=== PATIENT | male | born 1940 | race Caucasian/White ===

== ENCOUNTER 2020-04-25 14:27 | Emergency (ER) | payer OTHER, MEDICARE ==
[~2020-04-25] VITALS: Ht 175.3 cm; Wt 110.0 kg
[2020-04-25] MEDS ORDERED: HYDR-3490 PO (14:54)
[2020-04-25] MEDS ORDERED: METF-877 PO (14:54)
[2020-04-25] MEDS ORDERED: ECOT81TA5 PO (14:54)
[2020-04-25] MEDS ORDERED: LANTINJ4 SC (14:59)
[2020-04-25] MEDS ORDERED: NOVOINJ3 SC (14:59)
[2020-04-25] MEDS ORDERED: LISI2.5T2 PO (14:59)
[2020-04-25] MEDS ORDERED: JARD1TAB3 PO (16:07)
[2020-04-25] MEDS ORDERED: D31000TA2 PO (16:07)
[2020-04-25] MEDS ORDERED: EUCECRE8 TOP (16:07)
[2020-04-25] MEDS ORDERED: VENL150C43 PO (16:07)
[2020-04-25] MEDS ORDERED: ASPI81CH33 PO (16:07)
[2020-04-25] MEDS ORDERED: CHLO125TA PO (16:07)
[2020-04-25] MEDS ORDERED: ROSU40TA4 PO (16:07)
[2020-04-25] MEDS ORDERED: LISI20TA33 PO (16:07)
[2020-04-25] MEDS ORDERED: METF500T13 PO (16:07)
[2020-04-25 16:14] LABS: VENOUS BASE EXCESS -0.9 (-2.0-2.0); VENOUS HCO3 26.4 MEQ/L (23.0-27.0); VENOUS PARTIAL PRESSURE CO2 53.3 mmHg (38.0-50.0); VENOUS PARTIAL PRESSURE O2 38.6 mmHg (30.0-50.0); VENOUS PH 7.313 UNITS (7.330-7.430); VENOUS STANDARD HCO3 23.1 MEQ/L; VENOUS TOTAL CO2 28.1 MEQ/L (24.0-28.0)
[2020-04-25 16:18] LABS: BASO % 0.5 % (0.0-1.0); EOS # 0.1 10^3/uL (0.0-0.5); EOS % 1.4 % (0.0-3.0); HEMATOCRIT 47.3 % (42.0-52.0); HEMOGLOBIN 15.5 g/dl (13.5-17.5); LYMPH # 1.7 10^3/uL (1.5-5.0); LYMPH % 27.9 % (24.0-44.0); MEAN CORPUSCULAR HEMOGLOBIN 27.5 pg (27.0-33.0); MEAN CORPUSCULAR HGB CONC 32.8 g/dl (32.0-36.5); MEAN CORPUSCULAR VOLUME 83.9 fl (80.0-96.0); MONO # 0.4 10^3/uL (0.0-0.8); MONO % 7.1 % (2.0-8.0); NEUTROPHILS # 3.7 10^3/uL (1.5-8.5); NEUTROPHILS % 62.3 % (36.0-66.0); PLATELET COUNT, AUTOMATED 214 10^3/uL (150-450); RED BLOOD COUNT 5.64 10^6/uL (4.30-6.10); WHITE BLOOD COUNT 5.9 10^3/uL (4.0-10.0)
[2020-04-25 16:44] LABS: CALCIUM LEVEL 8.9 MG/DL (8.8-10.2); CREATININE FOR GFR 1.32 MG/DL (0.70-1.30); HEMOGLOBIN A1c 13.3 %; POTASSIUM SERUM 3.9 MEQ/L (3.5-5.1)
[2020-04-25 17:01] VITALS: BP 128/82
== END 2020-04-25 17:06 | disposition home or self-care (01) ==
LOC: M ED 14:27
DX: E11.40 Type 2 diabetes mellitus with diabetic neuropathy, unspecified (principal); I10 Essential (primary) hypertension; Z79.899 Other long term (current) drug therapy; Z79.82 Long term (current) use of aspirin; Z79.4 Long term (current) use of insulin

== ENCOUNTER 2021-04-07 16:37 | Emergency (ER) | payer BC, MEDICARE, OTHER ==
[~2021-04-07 16:37] MED LIST: ASPI81CH33 PO; CHLO125TA PO; D31000TA2 PO; ECOT81TA5 PO; EUCECRE8 TOP; HYDR-3490 PO; JARD1TAB3 PO; LANTINJ4 SC; LISI2.5T9 PO; LISI20TA33 PO; METF-877 PO; METF500T13 PO; NOVOINJ3 SC; ROSU40TA4 PO; VENL150C43 PO
[2021-04-07] MEDS ORDERED: ONDANSETRON 4 MG ORAL DISINTEGRATING TAB PO ONE (17:10)
[2021-04-07] MEDS ORDERED: POTASSIUM CHLORIDE 10MEQ SR TABLET PO ONE (17:15)
[2021-04-07 17:32] LABS: BASO % 0.5 % (0.0-1.0); EOS # 0.1 10^3/uL (0.0-0.5); EOS % 0.6 % (0.0-3.0); HEMATOCRIT 50.8 % (42.0-52.0); HEMOGLOBIN 17.1 g/dl (13.5-17.5); LYMPH # 1.8 10^3/uL (1.5-5.0); LYMPH % 22.7 % (24.0-44.0); MEAN CORPUSCULAR HEMOGLOBIN 27.9 pg (27.0-33.0); MEAN CORPUSCULAR HGB CONC 33.7 g/dl (32.0-36.5); MEAN CORPUSCULAR VOLUME 82.7 fl (80.0-96.0); MONO # 0.6 10^3/uL (0.0-0.8); MONO % 7.5 % (2.0-8.0); NEUTROPHILS # 5.2 10^3/uL (1.5-8.5); NEUTROPHILS % 67.8 % (36.0-66.0); PLATELET COUNT, AUTOMATED 217 10^3/uL (150-450); RED BLOOD COUNT 6.14 10^6/uL (4.30-6.10); WHITE BLOOD COUNT 7.7 10^3/uL (4.0-10.0)
[2021-04-07 18:05] LABS: ALBUMIN 2.6 GM/DL (3.2-5.2); BILIRUBIN,DIRECT 0.1 MG/DL (0.0-0.2); BILIRUBIN,TOTAL 0.3 MG/DL (0.2-1.0); TOTAL PROTEIN 7.1 GM/DL (6.4-8.2)
[2021-04-07 18:08] LABS: BLOOD UREA NITROGEN 33 MG/DL (7-18); CARBON DIOXIDE LEVEL 29 MEQ/L (21-32); CHLORIDE LEVEL 90 MEQ/L (98-107); CREATININE FOR GFR 1.21 MG/DL (0.70-1.30); GLOMERULAR FILTRATION RATE > 60.0 (>42); GLUCOSE, FASTING 253 MG/DL (70-100); POTASSIUM SERUM 3.3 MEQ/L (3.5-5.1); SODIUM LEVEL 130 MEQ/L (136-145)
[2021-04-07 19:00] VITALS: O2SAT 98
[2021-04-07 19:02] VITALS: BP 167/86
[2021-04-07 19:31] LABS: RSV AMPLIFICATION NEGATIVE (NEGATIVE)
== END 2021-04-07 19:18 | disposition home or self-care (01) ==
LOC: M ED 16:37 → EDBD 16:37 → M ED 19:18
DX: E11.65 Type 2 diabetes mellitus with hyperglycemia (principal); Z91.19 Patient's noncompliance with other medical treatment and regimen; E87.6 Hypokalemia; I10 Essential (primary) hypertension; G62.9 Polyneuropathy, unspecified; F33.9 Major depressive disorder, recurrent, unspecified; G47.30 Sleep apnea, unspecified; Z79.899 Other long term (current) drug therapy; Z79.82 Long term (current) use of aspirin; Z79.84 Long term (current) use of oral hypoglycemic drugs; Z79.4 Long term (current) use of insulin; Z87.891 Personal history of nicotine dependence
CPT/HCPCS: 36415; 80048; 80076; 83690; 85025; 87631; 93005; 99284; Q0162

== ENCOUNTER 2021-04-19 11:58 | Inpatient (IN) | payer OTHER, MEDICARE ==
[~2021-04-19] VITALS: Ht 172.7 cm; Wt 109.0 kg
[2021-04-19 13:59] LABS: BASO % 0.5 % (0.0-1.0); EOS # 0.1 10^3/uL (0.0-0.5); EOS % 1.1 % (0.0-3.0); HEMATOCRIT 50.8 % (42.0-52.0); HEMOGLOBIN 16.4 g/dl (13.5-17.5); LYMPH # 1.8 10^3/uL (1.5-5.0); LYMPH % 24.5 % (24.0-44.0); MEAN CORPUSCULAR HEMOGLOBIN 27.6 pg (27.0-33.0); MEAN CORPUSCULAR HGB CONC 32.3 g/dl (32.0-36.5); MEAN CORPUSCULAR VOLUME 85.5 fl (80.0-96.0); MONO # 0.5 10^3/uL (0.0-0.8); MONO % 6.7 % (2.0-8.0); NEUTROPHILS # 4.9 10^3/uL (1.5-8.5); NEUTROPHILS % 66.5 % (36.0-66.0); PLATELET COUNT, AUTOMATED 237 10^3/uL (150-450); RED BLOOD COUNT 5.94 10^6/uL (4.30-6.10); WHITE BLOOD COUNT 7.3 10^3/uL (4.0-10.0)
[2021-04-19 15:19] LABS: RSV AMPLIFICATION NEGATIVE (NEGATIVE)
[2021-04-19] MEDS ORDERED: NORCO, ANEXSIA 5/325MG TABLET (HYDROcodone/ACETAMINOPHEN) PO ONE (15:35)
[2021-04-19 15:46] LABS: HEMOGLOBIN A1c 11.6 %
[2021-04-19 16:01] LABS: BLOOD UREA NITROGEN 12 MG/DL (7-18); CALCIUM LEVEL 8.4 MG/DL (8.8-10.2); CARBON DIOXIDE LEVEL 27 MEQ/L (21-32); CHLORIDE LEVEL 104 MEQ/L (98-107); CREATININE FOR GFR 0.79 MG/DL (0.70-1.30); GLOMERULAR FILTRATION RATE > 60.0 (>42); GLUCOSE, FASTING 149 MG/DL (70-100); SODIUM LEVEL 137 MEQ/L (136-145)
[2021-04-19] MEDS ORDERED: GLUCOSE 4GM CHEW TABLET PO PRN (16:10)
[2021-04-19] MEDS ORDERED: DEXTROSE 50% 50 ML SYRINGE IV PRN (16:10)
[2021-04-19] MEDS ORDERED: GLUCAGON INJ 1MG VIAL SC PRN (16:10)
[2021-04-19] MEDS ORDERED: ROSU20TA5 PO (17:10)
[2021-04-19] MEDS ORDERED: HYDR-3363 PO (17:10)
[2021-04-19] MEDS ORDERED: SEMA1PEN2 SQ (17:10)
[2021-04-19] MEDS ORDERED: LISI10TA22 PO (17:10)
[2021-04-19] MEDS ORDERED: HOME MED LIST COMPLETE! XX SCH (18:00)
[2021-04-19] MEDS: HumaLOG INSULIN (NovoLOG) PER UNIT SC SCH ×2 (18:10→20:31)
[2021-04-19 19:00] VITALS: BP 173/91
[2021-04-19 22:00] VITALS: BP 141/71
[2021-04-19] MEDS: HEPARIN SOD (PORCINE) 5000UNITS/ML 1ML VIAL/SYRINGE SC SCH (22:27)
[2021-04-20 06:00] VITALS: BP 138/68
[2021-04-20 07:26] LABS: HEMATOCRIT 48.6 % (42.0-52.0); HEMOGLOBIN 15.7 g/dl (13.5-17.5); MEAN CORPUSCULAR HEMOGLOBIN 27.9 pg (27.0-33.0); MEAN CORPUSCULAR HGB CONC 32.3 g/dl (32.0-36.5); MEAN CORPUSCULAR VOLUME 86.3 fl (80.0-96.0); PLATELET COUNT, AUTOMATED 177 10^3/uL (150-450); RED BLOOD COUNT 5.63 10^6/uL (4.30-6.10); WHITE BLOOD COUNT 7.3 10^3/uL (4.0-10.0)
[2021-04-20] MEDS: HumaLOG INSULIN (NovoLOG) PER UNIT SC SCH ×4 (07:30→21:28)
[2021-04-20 07:41] LABS: BLOOD UREA NITROGEN 12 MG/DL (7-18); CALCIUM LEVEL 8.6 MG/DL (8.8-10.2); CARBON DIOXIDE LEVEL 27 MEQ/L (21-32); CHLORIDE LEVEL 106 MEQ/L (98-107); CREATININE FOR GFR 0.81 MG/DL (0.70-1.30); GLOMERULAR FILTRATION RATE > 60.0 (>42); GLUCOSE, FASTING 77 MG/DL (70-100); POTASSIUM SERUM 3.4 MEQ/L (3.5-5.1); SODIUM LEVEL 139 MEQ/L (136-145)
[2021-04-20] MEDS ORDERED: hydrOXYzine 25 MG TAB PO PRN (07:50)
[2021-04-20] MEDS ORDERED: POTASSIUM CHLORIDE 10MEQ SR TABLET PO ONE (08:15)
[2021-04-20] MEDS: HEPARIN SOD (PORCINE) 5000UNITS/ML 1ML VIAL/SYRINGE SC SCH ×2 (08:38→21:29)
[2021-04-20] MEDS: LEVEMIR (INSULIN DETEMIR) 1 UNITS/0.01ML SC SCH ×2 (09:00→21:28)
[2021-04-20 14:00] VITALS: BP 125/71
[2021-04-20] MEDS: methocarbamoL 750 MG TAB PO PRN (15:04)
[2021-04-20] MEDS: ASPIRIN 81 MG CHEW TABLET PO SCH (21:26)
[2021-04-20] MEDS: VENLAFAXINE **XR** 75MG CAPSULE PO SCH (21:27)
[2021-04-20] MEDS: ROSUVASTATIN 10 MG TAB (CRESTOR) PO SCH (21:27)
[2021-04-20] MEDS: VITAMIN D 1,000 INTERNATIONAL UNITS TABLET PO SCH (21:27)
[2021-04-20 22:00] VITALS: BP 126/63
[2021-04-21 06:00] VITALS: BP 133/60
[2021-04-21] MEDS: methocarbamoL 750 MG TAB PO PRN ×2 (06:12→21:03)
[2021-04-21] MEDS: HumaLOG INSULIN (NovoLOG) PER UNIT SC SCH ×4 (08:06→21:00)
[2021-04-21] MEDS: HEPARIN SOD (PORCINE) 5000UNITS/ML 1ML VIAL/SYRINGE SC SCH ×3 (08:29→21:02)
[2021-04-21] MEDS: LEVEMIR (INSULIN DETEMIR) 1 UNITS/0.01ML SC SCH ×2 (08:30→21:02)
[2021-04-21] MEDS: PERCOCET 5MG/325MG TAB PO PRN (12:03)
[2021-04-21 12:19] LABS: BLOOD UREA NITROGEN 20 MG/DL (7-18); CALCIUM LEVEL 8.9 MG/DL (8.8-10.2); CARBON DIOXIDE LEVEL 28 MEQ/L (21-32); CHLORIDE LEVEL 106 MEQ/L (98-107); GLOMERULAR FILTRATION RATE > 60.0 (>42); GLUCOSE, FASTING 171 MG/DL (70-100); POTASSIUM SERUM 3.9 MEQ/L (3.5-5.1); SODIUM LEVEL 140 MEQ/L (136-145)
[2021-04-21 14:00] VITALS: BP 132/62
[2021-04-21] MEDS: VENLAFAXINE **XR** 75MG CAPSULE PO SCH (21:03)
[2021-04-21] MEDS: ROSUVASTATIN 10 MG TAB (CRESTOR) PO SCH (21:03)
[2021-04-21] MEDS: VITAMIN D 1,000 INTERNATIONAL UNITS TABLET PO SCH (21:03)
[2021-04-21] MEDS: ASPIRIN 81 MG CHEW TABLET PO SCH (21:03)
[2021-04-22] MEDS: HEPARIN SOD (PORCINE) 5000UNITS/ML 1ML VIAL/SYRINGE SC SCH ×3 (05:54→21:19)
[2021-04-22] MEDS: HumaLOG INSULIN (NovoLOG) PER UNIT SC SCH ×4 (08:23→21:19)
[2021-04-22] MEDS: LEVEMIR (INSULIN DETEMIR) 1 UNITS/0.01ML SC SCH ×2 (08:23→21:19)
[2021-04-22 09:10] VITALS: BP 148/70
[2021-04-22] MEDS: PERCOCET 5MG/325MG TAB PO PRN (10:25)
[2021-04-22] MEDS: VITAMIN D 1,000 INTERNATIONAL UNITS TABLET PO SCH (21:18)
[2021-04-22] MEDS: ASPIRIN 81 MG CHEW TABLET PO SCH (21:18)
[2021-04-22] MEDS: ROSUVASTATIN 10 MG TAB (CRESTOR) PO SCH (21:18)
[2021-04-22] MEDS: VENLAFAXINE **XR** 75MG CAPSULE PO SCH (21:18)
[2021-04-23] MEDS: HEPARIN SOD (PORCINE) 5000UNITS/ML 1ML VIAL/SYRINGE SC SCH ×3 (05:59→21:56)
[2021-04-23] MEDS: PERCOCET 5MG/325MG TAB PO PRN (06:00)
[2021-04-23 06:42] VITALS: BP 150/71
[2021-04-23] MEDS: HumaLOG INSULIN (NovoLOG) PER UNIT SC SCH ×4 (08:56→21:00)
[2021-04-23] MEDS: LEVEMIR (INSULIN DETEMIR) 1 UNITS/0.01ML SC SCH ×2 (08:56→21:57)
[2021-04-23 09:00] VITALS: BP 151/71
[2021-04-23] MEDS: VITAMIN D 1,000 INTERNATIONAL UNITS TABLET PO SCH (21:56)
[2021-04-23] MEDS: ROSUVASTATIN 10 MG TAB (CRESTOR) PO SCH (21:56)
[2021-04-23] MEDS: VENLAFAXINE **XR** 75MG CAPSULE PO SCH (21:56)
[2021-04-23] MEDS: ASPIRIN 81 MG CHEW TABLET PO SCH (21:56)
[2021-04-24 06:00] VITALS: BP 149/73
[2021-04-24] MEDS: HEPARIN SOD (PORCINE) 5000UNITS/ML 1ML VIAL/SYRINGE SC SCH ×3 (06:04→21:30)
[2021-04-24] MEDS: LEVEMIR (INSULIN DETEMIR) 1 UNITS/0.01ML SC SCH ×2 (08:32→21:30)
[2021-04-24] MEDS: HumaLOG INSULIN (NovoLOG) PER UNIT SC SCH ×4 (08:33→21:00)
[2021-04-24] MEDS: PERCOCET 5MG/325MG TAB PO PRN ×2 (10:11→21:31)
[2021-04-24 21:15] VITALS: BP 145/71
[2021-04-24] MEDS: VITAMIN D 1,000 INTERNATIONAL UNITS TABLET PO SCH (21:31)
[2021-04-24] MEDS: ROSUVASTATIN 10 MG TAB (CRESTOR) PO SCH (21:31)
[2021-04-24] MEDS: ASPIRIN 81 MG CHEW TABLET PO SCH (21:31)
[2021-04-24] MEDS: VENLAFAXINE **XR** 75MG CAPSULE PO SCH (21:31)
[2021-04-25] MEDS: HEPARIN SOD (PORCINE) 5000UNITS/ML 1ML VIAL/SYRINGE SC SCH ×3 (05:59→21:02)
[2021-04-25 06:05] VITALS: BP 158/74
[2021-04-25] MEDS: HumaLOG INSULIN (NovoLOG) PER UNIT SC SCH ×4 (08:05→21:00)
[2021-04-25] MEDS: LEVEMIR (INSULIN DETEMIR) 1 UNITS/0.01ML SC SCH ×2 (08:06→21:01)
[2021-04-25] MEDS: methocarbamoL 750 MG TAB PO PRN (13:04)
[2021-04-25] MEDS ORDERED: MIRALAX *UNIT DOSE* 17GM PACKET PO PRN (17:00)
[2021-04-25] MEDS: DOCUSATE SODIUM 100MG CAPSULE PO SCH (20:55)
[2021-04-25] MEDS: ROSUVASTATIN 10 MG TAB (CRESTOR) PO SCH (20:55)
[2021-04-25] MEDS: ASPIRIN 81 MG CHEW TABLET PO SCH (20:56)
[2021-04-25] MEDS: VITAMIN D 1,000 INTERNATIONAL UNITS TABLET PO SCH (20:56)
[2021-04-25] MEDS: VENLAFAXINE **XR** 75MG CAPSULE PO SCH (20:56)
[2021-04-26 06:00] VITALS: BP 160/79
[2021-04-26] MEDS: HEPARIN SOD (PORCINE) 5000UNITS/ML 1ML VIAL/SYRINGE SC SCH ×3 (06:30→20:57)
[2021-04-26] MEDS: DOCUSATE SODIUM 100MG CAPSULE PO SCH ×2 (08:03→21:00)
[2021-04-26] MEDS: HumaLOG INSULIN (NovoLOG) PER UNIT SC SCH ×4 (08:04→20:58)
[2021-04-26] MEDS: LEVEMIR (INSULIN DETEMIR) 1 UNITS/0.01ML SC SCH ×2 (08:04→20:58)
[2021-04-26] MEDS: ASPIRIN 81 MG CHEW TABLET PO SCH (20:56)
[2021-04-26] MEDS: ROSUVASTATIN 10 MG TAB (CRESTOR) PO SCH (20:57)
[2021-04-26] MEDS: VITAMIN D 1,000 INTERNATIONAL UNITS TABLET PO SCH (20:57)
[2021-04-26] MEDS: VENLAFAXINE **XR** 75MG CAPSULE PO SCH (20:57)
[2021-04-26] MEDS: PERCOCET 5MG/325MG TAB PO PRN (20:59)
[2021-04-26 22:00] VITALS: BP 136/63
[2021-04-27 04:30] VITALS: BP 178/90
[2021-04-27] MEDS: HEPARIN SOD (PORCINE) 5000UNITS/ML 1ML VIAL/SYRINGE SC SCH ×3 (05:03→20:31)
[2021-04-27] MEDS: LEVEMIR (INSULIN DETEMIR) 1 UNITS/0.01ML SC SCH ×2 (08:10→20:31)
[2021-04-27] MEDS: DOCUSATE SODIUM 100MG CAPSULE PO SCH ×2 (08:10→20:32)
[2021-04-27] MEDS: HumaLOG INSULIN (NovoLOG) PER UNIT SC SCH ×4 (08:10→20:32)
[2021-04-27 11:13] VITALS: BP 165/73
[2021-04-27] MEDS: PERCOCET 5MG/325MG TAB PO PRN (11:13)
[2021-04-27] MEDS: VENLAFAXINE **XR** 75MG CAPSULE PO SCH (20:32)
[2021-04-27] MEDS: VITAMIN D 1,000 INTERNATIONAL UNITS TABLET PO SCH (20:32)
[2021-04-27] MEDS: ROSUVASTATIN 10 MG TAB (CRESTOR) PO SCH (20:32)
[2021-04-27] MEDS: ASPIRIN 81 MG CHEW TABLET PO SCH (20:32)
[2021-04-28 06:00] VITALS: BP 167/73
[2021-04-28] MEDS: HEPARIN SOD (PORCINE) 5000UNITS/ML 1ML VIAL/SYRINGE SC SCH ×3 (06:40→20:23)
[2021-04-28] MEDS: HumaLOG INSULIN (NovoLOG) PER UNIT SC SCH ×4 (07:39→20:24)
[2021-04-28] MEDS: LEVEMIR (INSULIN DETEMIR) 1 UNITS/0.01ML SC SCH ×2 (08:51→20:24)
[2021-04-28] MEDS: DOCUSATE SODIUM 100MG CAPSULE PO SCH ×2 (08:51→20:25)
[2021-04-28] MEDS: PERCOCET 5MG/325MG TAB PO PRN (09:55)
[2021-04-28] MEDS: ASPIRIN 81 MG CHEW TABLET PO SCH (20:22)
[2021-04-28] MEDS: ROSUVASTATIN 10 MG TAB (CRESTOR) PO SCH (20:22)
[2021-04-28] MEDS: VITAMIN D 1,000 INTERNATIONAL UNITS TABLET PO SCH (20:23)
[2021-04-28] MEDS: VENLAFAXINE **XR** 75MG CAPSULE PO SCH (20:23)
[2021-04-29] MEDS: HEPARIN SOD (PORCINE) 5000UNITS/ML 1ML VIAL/SYRINGE SC SCH ×3 (05:17→20:17)
[2021-04-29 06:00] VITALS: BP 160/74
[2021-04-29] MEDS: PERCOCET 5MG/325MG TAB PO PRN ×2 (07:23→20:23)
[2021-04-29] MEDS: HumaLOG INSULIN (NovoLOG) PER UNIT SC SCH ×4 (07:23→20:14)
[2021-04-29] MEDS: DOCUSATE SODIUM 100MG CAPSULE PO SCH ×2 (09:00→20:17)
[2021-04-29] MEDS: LEVEMIR (INSULIN DETEMIR) 1 UNITS/0.01ML SC SCH ×2 (10:15→20:15)
[2021-04-29] MEDS: VENLAFAXINE **XR** 75MG CAPSULE PO SCH (20:13)
[2021-04-29] MEDS: ASPIRIN 81 MG CHEW TABLET PO SCH (20:13)
[2021-04-29] MEDS: VITAMIN D 1,000 INTERNATIONAL UNITS TABLET PO SCH (20:14)
[2021-04-29] MEDS: ROSUVASTATIN 10 MG TAB (CRESTOR) PO SCH (20:14)
[2021-04-29 22:00] VITALS: BP 157/73
[2021-04-30] MEDS: HEPARIN SOD (PORCINE) 5000UNITS/ML 1ML VIAL/SYRINGE SC SCH ×3 (05:26→21:04)
[2021-04-30 06:00] VITALS: BP 171/87
[2021-04-30] MEDS: LEVEMIR (INSULIN DETEMIR) 1 UNITS/0.01ML SC SCH ×2 (08:45→21:04)
[2021-04-30] MEDS: PERCOCET 5MG/325MG TAB PO PRN ×2 (08:45→21:06)
[2021-04-30] MEDS: DOCUSATE SODIUM 100MG CAPSULE PO SCH ×2 (08:46→21:05)
[2021-04-30] MEDS: HumaLOG INSULIN (NovoLOG) PER UNIT SC SCH ×4 (08:46→21:05)
[2021-04-30] MEDS: VITAMIN D 1,000 INTERNATIONAL UNITS TABLET PO SCH (21:05)
[2021-04-30] MEDS: ASPIRIN 81 MG CHEW TABLET PO SCH (21:05)
[2021-04-30] MEDS: ROSUVASTATIN 10 MG TAB (CRESTOR) PO SCH (21:05)
[2021-04-30] MEDS: VENLAFAXINE **XR** 75MG CAPSULE PO SCH (21:05)
[2021-05-01 05:57] VITALS: BP 157/75
[2021-05-01] MEDS: HEPARIN SOD (PORCINE) 5000UNITS/ML 1ML VIAL/SYRINGE SC SCH ×3 (06:22→20:34)
[2021-05-01] MEDS: DOCUSATE SODIUM 100MG CAPSULE PO SCH ×2 (07:51→20:36)
[2021-05-01] MEDS: PERCOCET 5MG/325MG TAB PO PRN ×2 (07:52→20:36)
[2021-05-01] MEDS: HumaLOG INSULIN (NovoLOG) PER UNIT SC SCH ×4 (07:54→20:35)
[2021-05-01] MEDS: LEVEMIR (INSULIN DETEMIR) 1 UNITS/0.01ML SC SCH ×2 (07:54→20:35)
[2021-05-01] MEDS: methocarbamoL 750 MG TAB PO PRN (09:18)
[2021-05-01] MEDS: VENLAFAXINE **XR** 75MG CAPSULE PO SCH (20:36)
[2021-05-01] MEDS: VITAMIN D 1,000 INTERNATIONAL UNITS TABLET PO SCH (20:36)
[2021-05-01] MEDS: ASPIRIN 81 MG CHEW TABLET PO SCH (20:36)
[2021-05-01] MEDS: ROSUVASTATIN 10 MG TAB (CRESTOR) PO SCH (20:36)
[2021-05-02] MEDS: HEPARIN SOD (PORCINE) 5000UNITS/ML 1ML VIAL/SYRINGE SC SCH ×3 (05:19→21:18)
[2021-05-02 06:04] VITALS: BP 157/72
[2021-05-02] MEDS: LEVEMIR (INSULIN DETEMIR) 1 UNITS/0.01ML SC SCH ×2 (08:33→21:18)
[2021-05-02] MEDS: HumaLOG INSULIN (NovoLOG) PER UNIT SC SCH ×4 (08:34→21:17)
[2021-05-02] MEDS: DOCUSATE SODIUM 100MG CAPSULE PO SCH ×4 (08:34→21:17)
[2021-05-02] MEDS: PERCOCET 5MG/325MG TAB PO PRN ×2 (08:35→21:16)
[2021-05-02] MEDS: ASPIRIN 81 MG CHEW TABLET PO SCH (21:16)
[2021-05-02] MEDS: ROSUVASTATIN 10 MG TAB (CRESTOR) PO SCH (21:16)
[2021-05-02] MEDS: VITAMIN D 1,000 INTERNATIONAL UNITS TABLET PO SCH (21:16)
[2021-05-02] MEDS: VENLAFAXINE **XR** 75MG CAPSULE PO SCH (21:17)
[2021-05-03 06:00] VITALS: BP 154/75
[2021-05-03] MEDS: HEPARIN SOD (PORCINE) 5000UNITS/ML 1ML VIAL/SYRINGE SC SCH ×3 (06:23→20:05)
[2021-05-03] MEDS: LEVEMIR (INSULIN DETEMIR) 1 UNITS/0.01ML SC SCH ×2 (08:25→19:56)
[2021-05-03] MEDS: HumaLOG INSULIN (NovoLOG) PER UNIT SC SCH ×4 (08:25→19:56)
[2021-05-03] MEDS: DOCUSATE SODIUM 100MG CAPSULE PO SCH ×2 (08:25→19:58)
[2021-05-03] MEDS: ASPIRIN 81 MG CHEW TABLET PO SCH (19:57)
[2021-05-03] MEDS: VENLAFAXINE **XR** 75MG CAPSULE PO SCH (19:57)
[2021-05-03] MEDS: PERCOCET 5MG/325MG TAB PO PRN (19:57)
[2021-05-03] MEDS: VITAMIN D 1,000 INTERNATIONAL UNITS TABLET PO SCH (19:57)
[2021-05-03] MEDS: ROSUVASTATIN 10 MG TAB (CRESTOR) PO SCH (19:57)
[2021-05-04 06:00] VITALS: BP 150/80
[2021-05-04] MEDS: HEPARIN SOD (PORCINE) 5000UNITS/ML 1ML VIAL/SYRINGE SC SCH ×3 (06:07→21:22)
[2021-05-04] MEDS: DOCUSATE SODIUM 100MG CAPSULE PO SCH ×2 (08:23→21:00)
[2021-05-04] MEDS: HumaLOG INSULIN (NovoLOG) PER UNIT SC SCH ×4 (08:24→21:21)
[2021-05-04] MEDS: LEVEMIR (INSULIN DETEMIR) 1 UNITS/0.01ML SC SCH ×2 (08:25→21:22)
[2021-05-04] MEDS: PERCOCET 5MG/325MG TAB PO PRN ×2 (08:26→21:20)
[2021-05-04] MEDS: VENLAFAXINE **XR** 75MG CAPSULE PO SCH (21:20)
[2021-05-04] MEDS: ROSUVASTATIN 10 MG TAB (CRESTOR) PO SCH (21:20)
[2021-05-04] MEDS: ASPIRIN 81 MG CHEW TABLET PO SCH (21:20)
[2021-05-04] MEDS: VITAMIN D 1,000 INTERNATIONAL UNITS TABLET PO SCH (21:20)
[2021-05-05 04:53] VITALS: BP 170/63
[2021-05-05] MEDS: HEPARIN SOD (PORCINE) 5000UNITS/ML 1ML VIAL/SYRINGE SC SCH ×3 (05:09→21:48)
[2021-05-05] MEDS: LEVEMIR (INSULIN DETEMIR) 1 UNITS/0.01ML SC SCH ×2 (08:26→21:48)
[2021-05-05] MEDS: HumaLOG INSULIN (NovoLOG) PER UNIT SC SCH ×4 (08:27→21:49)
[2021-05-05] MEDS: DOCUSATE SODIUM 100MG CAPSULE PO SCH ×2 (08:31→21:00)
[2021-05-05 14:00] VITALS: BP 142/71
[2021-05-05] MEDS: VENLAFAXINE **XR** 75MG CAPSULE PO SCH (21:49)
[2021-05-05] MEDS: ROSUVASTATIN 10 MG TAB (CRESTOR) PO SCH (21:49)
[2021-05-05] MEDS: ASPIRIN 81 MG CHEW TABLET PO SCH (21:49)
[2021-05-05] MEDS: VITAMIN D 1,000 INTERNATIONAL UNITS TABLET PO SCH (21:49)
[2021-05-06] MEDS: HEPARIN SOD (PORCINE) 5000UNITS/ML 1ML VIAL/SYRINGE SC SCH ×3 (05:29→20:58)
[2021-05-06 06:00] VITALS: BP 152/88
[2021-05-06] MEDS: HumaLOG INSULIN (NovoLOG) PER UNIT SC SCH ×4 (08:08→20:58)
[2021-05-06] MEDS: DOCUSATE SODIUM 100MG CAPSULE PO SCH ×2 (08:09→20:58)
[2021-05-06] MEDS: LEVEMIR (INSULIN DETEMIR) 1 UNITS/0.01ML SC SCH ×2 (08:09→20:58)
[2021-05-06] MEDS: PERCOCET 5MG/325MG TAB PO PRN (09:13)
[2021-05-06] MEDS: VENLAFAXINE **XR** 75MG CAPSULE PO SCH (20:58)
[2021-05-06] MEDS: VITAMIN D 1,000 INTERNATIONAL UNITS TABLET PO SCH (20:58)
[2021-05-06] MEDS: ASPIRIN 81 MG CHEW TABLET PO SCH (20:58)
[2021-05-06] MEDS: ROSUVASTATIN 10 MG TAB (CRESTOR) PO SCH (20:59)
[2021-05-07 06:00] VITALS: BP 198/95
[2021-05-07] MEDS: HEPARIN SOD (PORCINE) 5000UNITS/ML 1ML VIAL/SYRINGE SC SCH ×3 (06:19→21:35)
[2021-05-07] MEDS: DOCUSATE SODIUM 100MG CAPSULE PO SCH ×2 (08:08→21:34)
[2021-05-07] MEDS: LEVEMIR (INSULIN DETEMIR) 1 UNITS/0.01ML SC SCH ×2 (08:08→21:35)
[2021-05-07] MEDS: HumaLOG INSULIN (NovoLOG) PER UNIT SC SCH ×4 (08:08→21:44)
[2021-05-07] MEDS: PERCOCET 5MG/325MG TAB PO PRN (08:15)
[2021-05-07] MEDS: ASPIRIN 81 MG CHEW TABLET PO SCH (21:34)
[2021-05-07] MEDS: VITAMIN D 1,000 INTERNATIONAL UNITS TABLET PO SCH (21:34)
[2021-05-07] MEDS: ROSUVASTATIN 10 MG TAB (CRESTOR) PO SCH (21:34)
[2021-05-07] MEDS: VENLAFAXINE **XR** 75MG CAPSULE PO SCH (21:35)
[2021-05-08] MEDS: HEPARIN SOD (PORCINE) 5000UNITS/ML 1ML VIAL/SYRINGE SC SCH ×3 (05:33→22:05)
[2021-05-08 06:00] VITALS: BP 155/80
[2021-05-08] MEDS: LEVEMIR (INSULIN DETEMIR) 1 UNITS/0.01ML SC SCH ×2 (08:24→22:03)
[2021-05-08] MEDS: DOCUSATE SODIUM 100MG CAPSULE PO SCH ×3 (08:25→21:00)
[2021-05-08] MEDS: HumaLOG INSULIN (NovoLOG) PER UNIT SC SCH ×4 (08:25→22:03)
[2021-05-08 08:57] LABS: BASO # 0.1 10^3/uL (0.0-0.2); BASO % 1.3 % (0.0-1.0); EOS # 0.1 10^3/uL (0.0-0.5); EOS % 2.1 % (0.0-3.0); HEMOGLOBIN 16.7 g/dl (13.5-17.5); LYMPH # 1.9 10^3/uL (1.5-5.0); LYMPH % 30.4 % (24.0-44.0); MEAN CORPUSCULAR HGB CONC 32.7 g/dl (32.0-36.5); MEAN CORPUSCULAR VOLUME 85.4 fl (80.0-96.0); MONO # 0.5 10^3/uL (0.0-0.8); MONO % 7.6 % (2.0-8.0); NEUTROPHILS # 3.6 10^3/uL (1.5-8.5); NEUTROPHILS % 56.5 % (36.0-66.0); PLATELET COUNT, AUTOMATED 217 10^3/uL (150-450); RED BLOOD COUNT 5.97 10^6/uL (4.30-6.10); WHITE BLOOD COUNT 6.3 10^3/uL (4.0-10.0)
[2021-05-08 09:18] LABS: BLOOD UREA NITROGEN 15 MG/DL (7-18); CALCIUM LEVEL 8.6 MG/DL (8.8-10.2); CARBON DIOXIDE LEVEL 31 MEQ/L (21-32); CHLORIDE LEVEL 101 MEQ/L (98-107); CREATININE FOR GFR 0.99 MG/DL (0.70-1.30); GLOMERULAR FILTRATION RATE > 60.0 (>42); GLUCOSE, FASTING 293 MG/DL (70-100); MAGNESIUM LEVEL 1.9 MG/DL (1.8-2.4); POTASSIUM SERUM 4.1 MEQ/L (3.5-5.1); SODIUM LEVEL 137 MEQ/L (136-145)
[2021-05-08] MEDS: ASPIRIN 81 MG CHEW TABLET PO SCH (22:04)
[2021-05-08] MEDS: ROSUVASTATIN 10 MG TAB (CRESTOR) PO SCH (22:04)
[2021-05-08] MEDS: VITAMIN D 1,000 INTERNATIONAL UNITS TABLET PO SCH (22:04)
[2021-05-08] MEDS: VENLAFAXINE **XR** 75MG CAPSULE PO SCH (22:04)
[2021-05-08] MEDS: PERCOCET 5MG/325MG TAB PO PRN (22:05)
[2021-05-09] MEDS: HEPARIN SOD (PORCINE) 5000UNITS/ML 1ML VIAL/SYRINGE SC SCH (05:16)
[2021-05-09 06:00] VITALS: BP 124/65
[2021-05-09] MEDS: HumaLOG INSULIN (NovoLOG) PER UNIT SC SCH ×2 (08:52→12:00)
[2021-05-09] MEDS: LEVEMIR (INSULIN DETEMIR) 1 UNITS/0.01ML SC SCH (08:52)
[2021-05-09 08:53] VITALS: BP 124/65
[2021-05-09] MEDS: DOCUSATE SODIUM 100MG CAPSULE PO SCH (08:53)
[2021-05-09] MEDS ORDERED: METH-1165 PO (09:48)
[2021-05-09] MEDS ORDERED: COLA100C5 PO (09:48)
[2021-05-09] MEDS ORDERED: PERCOCET PO (09:48)
[2021-05-09] MEDS ORDERED: MIRA1POW3 PO (09:48)
[2021-05-09] MEDS: PERCOCET 5MG/325MG TAB PO PRN (11:18)
== END 2021-05-09 12:15 | disposition home or self-care (01) | DRG 552 ==
LOC: EDBD 11:58 → M ED 11:58 → M ED INP 16:09 → M MS5PR 18:45
PROVIDERS: ADMIT Internal Medicine; ATTEND Internal Medicine
DX: M54.50 Low back pain, unspecified (principal); E11.9 Type 2 diabetes mellitus without complications; I10 Essential (primary) hypertension; E78.5 Hyperlipidemia, unspecified; G47.33 Obstructive sleep apnea (adult) (pediatric); Z91.19 Patient's noncompliance with other medical treatment and regimen; E66.9 Obesity, unspecified; M25.551 Pain in right hip; M25.552 Pain in left hip; M48.061 Spinal stenosis, lumbar region without neurogenic claudication; I49.9 Cardiac arrhythmia, unspecified; Z95.0 Presence of cardiac pacemaker; Z87.891 Personal history of nicotine dependence; Z20.822 Contact with and (suspected) exposure to COVID-19; Z79.82 Long term (current) use of aspirin; Z79.4 Long term (current) use of insulin; Z79.899 Other long term (current) drug therapy; Z68.36 Body mass index [BMI] 36.0-36.9, adult

== ENCOUNTER → 2022-09-21 | Outpatient (CLI) | payer MEDICARE, OTHER ==
[~2022-09-21] MED LIST changes: +COLA100C5 PO; -D31000TA2 PO; +HYDR-3363 PO; +ISOVUE-370 76% 100ML VIAL As Ordered ONE; +LISI10TA22 PO; +METH-1165 PO; +MIRA1POW3 PO; +PERCOCET PO; +ROSU20TA61 PO; +SEMA1PEN2 SQ; +VITA100093 PO
== END ==
LOC: M RAD 13:37
PROVIDERS: ATTEND Nurse Practitioner Family
DX: N20.0 Calculus of kidney (principal); N28.89 Other specified disorders of kidney and ureter; K40.20 Bilateral inguinal hernia, without obstruction or gangrene, not specified as recurrent; K80.20 Calculus of gallbladder without cholecystitis without obstruction; N41.1 Chronic prostatitis
CPT/HCPCS: 74178; Q9967

== ENCOUNTER → 2023-10-13 | Outpatient (CLI) | payer OTHER, MEDICARE ==
[~2023-10-13] MED LIST changes: +GASTROGRAFIN SOLUTION 30ML As Ordered ONE; -MIRA1POW3 PO; +MIRA33506 PO; -ROSU40TA4 PO; +ROSU40TA63 PO
== END ==
LOC: M RAD 13:53
PROVIDERS: ATTEND Specialist
DX: C43.9 Malignant melanoma of skin, unspecified (principal); I70.0 Atherosclerosis of aorta; I25.10 Atherosclerotic heart disease of native coronary artery without angina pectoris; I51.7 Cardiomegaly; Z95.0 Presence of cardiac pacemaker; N62 Hypertrophy of breast

== ENCOUNTER 2024-04-12 13:29 | Observation (INO) | payer OTHER, MEDICARE ==
[~2024-04-12] VITALS: Ht 172.7 cm; Wt 96.9 kg
[~2024-04-12 13:29] MED LIST changes: -GASTROGRAFIN SOLUTION 30ML As Ordered ONE; -ISOVUE-370 76% 100ML VIAL As Ordered ONE; -ROSU20TA61 PO; +ROSU20TA86 PO; -ROSU40TA63 PO; +ROSU40TA81 PO
[2024-04-12] MEDS: PERCOCET 5MG/325MG TAB PO ONE (14:08)
[2024-04-12] MEDS: LIDOCAINE 5% (LIDODERM) PATCH TD ONE (15:44)
[2024-04-12 17:17] LABS: BASO % 0.3 % (0.0-1.0); EOS # 0.1 10^3/uL (0.0-0.5); EOS % 0.5 % (0.0-3.0); HEMATOCRIT 52.3 % (42.0-52.0); HEMOGLOBIN 17.3 g/dl (13.5-17.5); LYMPH # 1.8 10^3/uL (1.5-5.0); LYMPH % 17.7 % (24.0-44.0); MEAN CORPUSCULAR HEMOGLOBIN 28.5 pg (27.0-33.0); MEAN CORPUSCULAR HGB CONC 33.1 g/dl (32.0-36.5); MEAN CORPUSCULAR VOLUME 86.3 fl (80.0-96.0); MONO # 0.7 10^3/uL (0.0-0.8); MONO % 7.1 % (2.0-8.0); NEUTROPHILS # 7.5 10^3/uL (1.5-8.5); NEUTROPHILS % 73.9 % (36.0-66.0); PLATELET COUNT, AUTOMATED 252 10^3/uL (150-450); RED BLOOD COUNT 6.06 10^6/uL (4.30-6.10); WHITE BLOOD COUNT 10.1 10^3/uL (4.0-10.0)
[2024-04-12 17:40] LABS: BLOOD UREA NITROGEN 17 MG/DL (9-23); CALCIUM LEVEL 8.9 MG/DL (8.3-10.6); CARBON DIOXIDE LEVEL 23 MMOL/L (20-31); CHLORIDE LEVEL 107 MMOL/L (98-107); CREATININE FOR GFR 0.95 MG/DL (0.70-1.30); GLOMERULAR FILTRATION RATE > 60.0 (>35); GLUCOSE, FASTING 155 MG/DL (74-106); POTASSIUM SERUM 4.2 MMOL/L (3.5-5.1); SODIUM LEVEL 141 MMOL/L (136-145)
[2024-04-12] MEDS ORDERED: ACETAMINOPHEN 325 MG TAB PO PRN (21:35)
[2024-04-12] MEDS ORDERED: methocarbamoL 500 MG TAB PO PRN (21:35)
[2024-04-12] MEDS ORDERED: GLUCOSE 4 GM CHEW PO PRN (21:55)
[2024-04-12] MEDS ORDERED: DEXTROSE 50% 50ML SYRINGE IV PRN (21:55)
[2024-04-12] MEDS ORDERED: GLUCAGON INJ 1MG VIAL SC PRN (21:55)
[2024-04-12] MEDS: INSULIN LISPRO (NovoLOG) PER UNIT SC SCH (22:34)
[2024-04-12] MEDS: PERCOCET 5MG/325MG TAB PO PRN (22:45)
[2024-04-12] MEDS: MELOXICAM (MOBIC) 7.5 MG TAB PO SCH (22:45)
[2024-04-12 22:55] LABS: ALBUMIN 3.2 G/DL (3.2-5.2); ALKALINE PHOSPHATASE 49 U/L (40-129); ALT/SGPT 14 U/L (7.0-40); AST/SGOT 14 U/L (<34); BILIRUBIN,DIRECT 0.1 MG/DL (<0.4); BILIRUBIN,TOTAL 0.3 MG/DL (0.3-1.2); TOTAL PROTEIN 6.5 G/DL (5.7-8.2)
[2024-04-13] MEDS: IBUPROFEN 600MG TAB PO PRN (03:39)
[2024-04-13] MEDS: INSULIN LISPRO (NovoLOG) PER UNIT SC SCH (07:30)
[2024-04-13] MEDS: DOCUSATE SODIUM 100MG CAPSULE PO SCH (08:45)
[2024-04-13] MEDS: LEVEMIR (INSULIN DETEMIR) 1 UNITS/0.01ML SC SCH (08:45)
[2024-04-13 10:38] LABS: HEMATOCRIT 52.6 % (42.0-52.0); HEMOGLOBIN 16.9 g/dl (13.5-17.5); MEAN CORPUSCULAR HEMOGLOBIN 28.1 pg (27.0-33.0); MEAN CORPUSCULAR HGB CONC 32.1 g/dl (32.0-36.5); MEAN CORPUSCULAR VOLUME 87.5 fl (80.0-96.0); PLATELET COUNT, AUTOMATED 244 10^3/uL (150-450); RED BLOOD COUNT 6.01 10^6/uL (4.30-6.10); WHITE BLOOD COUNT 10.1 10^3/uL (4.0-10.0)
[2024-04-13 11:07] LABS: ALBUMIN 3.1 G/DL (3.2-5.2); ALKALINE PHOSPHATASE 49 U/L (40-129); ALT/SGPT 13 U/L (7.0-40); AST/SGOT 21 U/L (<34); BILIRUBIN,TOTAL 0.3 MG/DL (0.3-1.2); BLOOD UREA NITROGEN 24 MG/DL (9-23); CALCIUM LEVEL 9.1 MG/DL (8.3-10.6); CARBON DIOXIDE LEVEL 22 MMOL/L (20-31); CHLORIDE LEVEL 105 MMOL/L (98-107); CREATININE FOR GFR 1.13 MG/DL (0.70-1.30); GLOMERULAR FILTRATION RATE > 60.0 (>35); GLUCOSE, FASTING 187 MG/DL (74-106); MAGNESIUM LEVEL 2.1 MG/DL (1.8-2.4); POTASSIUM SERUM 4.5 MMOL/L (3.5-5.1); SODIUM LEVEL 139 MMOL/L (136-145); TOTAL PROTEIN 6.3 G/DL (5.7-8.2)
[2024-04-13] MEDS ORDERED: METF750T36 PO (13:22)
[2024-04-13] MEDS ORDERED: ACET-683 PO (13:26)
[2024-04-13] MEDS ORDERED: LIDO5OIN19 TOP (13:26)
[2024-04-13] MEDS ORDERED: TOUJ1.2I SC (13:26)
[2024-04-13] MEDS ORDERED: POTA-149 PO (13:26)
[2024-04-13] MEDS ORDERED: MELA3TAB30 PO (13:26)
[2024-04-13] MEDS ORDERED: AMLO1TAB25 PO (13:26)
[2024-04-13] MEDS ORDERED: BUSP5TA PO (13:26)
[2024-04-13] MEDS ORDERED: HOME MED LIST COMPLETE! XX SCH (14:00)
[2024-04-13] MEDS ORDERED: ASPI81TA26 PO (14:00)
[2024-04-13] MEDS ORDERED: POLY17PO18 PO (14:00)
[2024-04-13] MEDS ORDERED: MM S100C PO (14:00)
[2024-04-13 16:15] VITALS: BP 146/84; TEMP 97.5; O2SAT 99
[2024-04-13] MEDS: LIDOCAINE 5% (LIDODERM) PATCH TD SCH (17:09)
[2024-04-13 19:57] VITALS: BP 109/63; TEMP 98.2; O2SAT 97
[2024-04-13] MEDS: NYSTATIN 100,000 UNITS/GM TOPICAL PWD 15GM TOP SCH (21:10)
[2024-04-13] MEDS: VANICREAM MOISTURIZING SKIN CREAM 113GM TUBE TOP SCH (21:10)
[2024-04-14 04:58] VITALS: BP 137/83; TEMP 97.2; O2SAT 99
[2024-04-14 12:00] VITALS: BP 140/82; TEMP 97.3; O2SAT 99
[2024-04-14 18:59] VITALS: BP 161/97; TEMP 97.7; O2SAT 98
[2024-04-15 04:27] VITALS: BP 152/82; TEMP 97.2; O2SAT 98
[2024-04-15 12:04] VITALS: BP 163/98; TEMP 97.2; O2SAT 98
[2024-04-15] MEDS: MAALOX 30 ML SUSP *UDC PO PRN (18:55)
[2024-04-15 20:16] VITALS: BP 161/93; TEMP 97.3; O2SAT 95
[2024-04-16 04:24] VITALS: BP 162/93; TEMP 97.7; O2SAT 98
[2024-04-16 12:00] VITALS: BP 163/91; TEMP 97.7; O2SAT 98
[2024-04-16 20:42] VITALS: BP 158/82; TEMP 97.7; O2SAT 96
[2024-04-17 04:42] VITALS: BP 166/74; TEMP 97.5; O2SAT 98
[2024-04-17 12:00] VITALS: BP 164/80; TEMP 97.2; O2SAT 99
[2024-04-17 20:22] VITALS: BP 149/86; TEMP 97.5; O2SAT 97
[2024-04-18 05:10] VITALS: BP 164/85; TEMP 97.2; O2SAT 95
[2024-04-18 12:00] VITALS: BP 163/83; TEMP 97.7; O2SAT 98
[2024-04-18] MEDS: ASPIRIN 81MG ENTERIC TABLET PO SCH (12:45)
[2024-04-18] MEDS: VENLAFAXINE **XR** 75MG CAPSULE PO SCH (12:45)
[2024-04-18] MEDS: busPIRone 5 MG TAB PO SCH (12:45)
[2024-04-18] MEDS: methocarbamoL 500 MG TAB PO SCH (17:51)
[2024-04-18] MEDS: ACETAMINOPHEN 500 MG TAB PO SCH (17:51)
[2024-04-18] MEDS: ROSUVASTATIN 10 MG TAB (CRESTOR) PO SCH (21:13)
[2024-04-19 06:23] VITALS: BP 165/85; TEMP 97.7; O2SAT 96
[2024-04-20] MEDS: oxyCODONE 5MG TAB PO PRN (01:23)
[2024-04-20 03:54] VITALS: BP 165/92; TEMP 97.3; O2SAT 94
[2024-04-21 04:00] VITALS: BP 167/93; TEMP 97.5; O2SAT 98
[2024-04-21] MEDS ORDERED: BISACODYL 10MG SUPP PR PRN (17:40)
[2024-04-21] MEDS: SENNA 8.6 MG TAB (SENOKOT) PO SCH (18:11)
[2024-04-21] MEDS: MIRALAX *UNIT DOSE* 17GM PACKET PO PRN (18:11)
[2024-04-22 03:59] VITALS: BP 166/92; TEMP 97.5; O2SAT 95
[2024-04-22] MEDS ORDERED: KETOROLAC TROMETHAMINE 10 MG TAB PO ONE (04:00)
[2024-04-22] MEDS: KETOROLAC TROMETHAMINE 10 MG TAB PO ONE (04:22)
[2024-04-22 12:42] LABS: HEMATOCRIT 48.7 % (42.0-52.0); HEMOGLOBIN 15.4 g/dl (13.5-17.5); MEAN CORPUSCULAR HGB CONC 31.6 g/dl (32.0-36.5); MEAN CORPUSCULAR VOLUME 88.5 fl (80.0-96.0); PLATELET COUNT, AUTOMATED 242 10^3/uL (150-450); WHITE BLOOD COUNT 6.2 10^3/uL (4.0-10.0)
[2024-04-22 13:06] LABS: BLOOD UREA NITROGEN 17 MG/DL (9-23); CALCIUM LEVEL 8.2 MG/DL (8.3-10.6); CARBON DIOXIDE LEVEL 30 MMOL/L (20-31); CHLORIDE LEVEL 104 MMOL/L (98-107); CREATININE FOR GFR 0.87 MG/DL (0.70-1.30); GLOMERULAR FILTRATION RATE > 60.0 (>35); GLUCOSE, FASTING 186 MG/DL (74-106); POTASSIUM SERUM 3.9 MMOL/L (3.5-5.1); SODIUM LEVEL 142 MMOL/L (136-145)
[2024-04-22 14:00] VITALS: BP 172/79; TEMP 97.5; O2SAT 96
[2024-04-22] MEDS: GABAPENTIN 100 MG CAP PO SCH (17:15)
[2024-04-23] MEDS: ANALGESIC BALM CRM 3OZ TOP PRN (02:53)
[2024-04-23 05:30] VITALS: BP 160/80; TEMP 97.6; O2SAT 97
[2024-04-23] MEDS: GABAPENTIN 300 MG CAP PO SCH (20:32)
[2024-04-24 03:45] VITALS: BP 146/60; TEMP 97.2; O2SAT 96
[2024-04-25 03:52] VITALS: BP 162/86; TEMP 97.3; O2SAT 99
[2024-04-26 04:00] VITALS: BP 146/86; TEMP 97.3; O2SAT 97
[2024-04-27 04:33] VITALS: BP 162/84; TEMP 97.3; O2SAT 95
[2024-04-27] MEDS ORDERED: PILL CUTTER 1 EACH XX ONE (09:02)
[2024-04-27] MEDS: MORPHINE 2 MG/ML 1ML VIAL IV ONE (12:25)
[2024-04-27] MEDS: PERCOCET 5MG/325MG TAB PO PRN (12:30)
[2024-04-28 03:40] VITALS: BP 154/87; TEMP 97.2; O2SAT 96
[2024-04-29 04:24] VITALS: BP 163/88; TEMP 97.2; O2SAT 96
[2024-04-29 05:18] VITALS: BP 154/86
[2024-04-30 04:38] VITALS: TEMP 97.2; O2SAT 99
[2024-04-30 05:44] VITALS: BP 152/78
[2024-04-30] MEDS: MIRALAX *UNIT DOSE* 17GM PACKET PO SCH (18:33)
[2024-04-30] MEDS: SENOKOT S TAB PO SCH (21:54)
[2024-05-01 04:40] VITALS: BP 154/83; TEMP 97.3; O2SAT 96
[2024-05-01] MEDS: BISACODYL 10MG SUPP PR SCH (06:54)
[2024-05-02 04:18] VITALS: BP 160/91; TEMP 97.3; O2SAT 98
[2024-05-03 04:00] VITALS: BP 142/60; TEMP 97.5; O2SAT 96
[2024-05-04 04:45] VITALS: BP 158/92; TEMP 97.7; O2SAT 99
[2024-05-05 04:00] VITALS: BP 146/81; TEMP 97.3; O2SAT 96
[2024-05-06 04:04] VITALS: BP 134/68; TEMP 97.9; O2SAT 94
[2024-05-06 08:00] VITALS: BP 146/70
[2024-05-07 03:38] VITALS: BP 152/76; TEMP 97.3; O2SAT 96
[2024-05-07] MEDS: GABAPENTIN 400MG CAP PO ONE (12:08)
[2024-05-07] MEDS: traMADol 50 MG TAB PO ONE (12:09)
[2024-05-07] MEDS: LanTUS (INSULIN GLARGINE INJ) 1 UNITS/0.01 ML SC ONE (23:00)
[2024-05-08 04:23] VITALS: BP 147/83; TEMP 97.3; O2SAT 93
[2024-05-08 08:43] VITALS: BP 147/83
[2024-05-08] MEDS ORDERED: COLA100C5 PO (11:33)
[2024-05-08] MEDS ORDERED: METH-1164 PO (11:33)
[2024-05-08] MEDS ORDERED: VANI1CRE5 TOP (11:33)
[2024-05-08] MEDS ORDERED: TOUJ1.2I SC (11:33)
[2024-05-08] MEDS ORDERED: TRAM50TA2 PO (11:33)
[2024-05-08] MEDS ORDERED: ACET-683 PO (11:33)
[2024-05-08] MEDS ORDERED: GABA-1172 PO (11:33)
[2024-05-08] MEDS ORDERED: LIDO5TD TD (11:33)
[2024-05-08] MEDS ORDERED: SENN-52 PO (11:33)
[2024-05-08] MEDS ORDERED: LanTUS (INSULIN GLARGINE INJ) 1 UNITS/0.01 ML SC SCH (21:00)
== END 2024-05-08 13:08 ==
LOC: M ED 13:29 → EDBD 13:29 → OBSVTOIN 13:30 → INTOOBSV 13:30 → M ED INP 13:30 → INTOOBSV 04-13 11:41 → M ED INP 04-13 11:41 → UNDOADMOB 04-13 11:41 → M ED INP 04-13 15:57 → M MSPAV 04-13 15:57
PROVIDERS: ADMIT Student in an Organized Health Care Education/Training Program; ATTEND Internal Medicine Nephrology
DX: R29.6 Repeated falls (principal); M79.651 Pain in right thigh; E11.42 Type 2 diabetes mellitus with diabetic polyneuropathy; R26.81 Unsteadiness on feet; R54 Age-related physical debility; Z91.81 History of falling; D17.79 Benign lipomatous neoplasm of other sites; M48.061 Spinal stenosis, lumbar region without neurogenic claudication; M16.11 Unilateral primary osteoarthritis, right hip; M17.11 Unilateral primary osteoarthritis, right knee; E11.40 Type 2 diabetes mellitus with diabetic neuropathy, unspecified; I10 Essential (primary) hypertension; F32.A Depression, unspecified; G47.33 Obstructive sleep apnea (adult) (pediatric); C43.62 Malignant melanoma of left upper limb, including shoulder; Z87.442 Personal history of urinary calculi; Z95.0 Presence of cardiac pacemaker; E78.5 Hyperlipidemia, unspecified; F39 Unspecified mood [affective] disorder; E66.9 Obesity, unspecified; Z68.32 Body mass index [BMI] 32.0-32.9, adult; Z79.899 Other long term (current) drug therapy; Z79.82 Long term (current) use of aspirin; Z79.84 Long term (current) use of oral hypoglycemic drugs; Z79.85 Long-term (current) use of injectable non-insulin antidiabetic drugs
CPT/HCPCS: 36415; 72131; 73502; 73552; 74018; 80048; 80053; 80076; 83735; 84484; 85025; 85027; 87426; 93971; 97161; 97530; 99284; G0378; J1815

== ENCOUNTER → 2024-05-09 | Outpatient (REF) ==
[~2024-05-09] MED LIST changes: +ACET-683 PO; +AMLO1TAB25 PO; +ASPI81TA26 PO; +BUSP5TA PO; +GABA-1172 PO; +LIDO5OIN19 TOP; +LIDO5TD TD; +MELA3TAB30 PO; +METF750T36 PO; +METH-1164 PO; +MM S100C PO; +POLY17PO18 PO; +POTA-149 PO; +SENN-52 PO; +TOUJ1.2I SC; +TRAM50TA2 PO; +VANI1CRE5 TOP
[2024-05-09 09:53] LABS: HEMATOCRIT 47.4 % (42.0-52.0); HEMOGLOBIN 14.9 g/dl (13.5-17.5); MEAN CORPUSCULAR HEMOGLOBIN 27.3 pg (27.0-33.0); MEAN CORPUSCULAR HGB CONC 31.4 g/dl (32.0-36.5); MEAN CORPUSCULAR VOLUME 86.8 fl (80.0-96.0); PLATELET COUNT, AUTOMATED 229 10^3/uL (150-450); RED BLOOD COUNT 5.46 10^6/uL (4.30-6.10); WHITE BLOOD COUNT 6.6 10^3/uL (4.0-10.0)
[2024-05-09 10:37] LABS: BLOOD UREA NITROGEN 15 MG/DL (9-23); CALCIUM LEVEL 8.5 MG/DL (8.3-10.6); CARBON DIOXIDE LEVEL 26 MMOL/L (20-31); CHLORIDE LEVEL 104 MMOL/L (98-107); CREATININE FOR GFR 0.74 MG/DL (0.70-1.30); GLOMERULAR FILTRATION RATE > 60.0 (>35); GLUCOSE, FASTING 303 MG/DL (74-106); POTASSIUM SERUM 4.1 MMOL/L (3.5-5.1); SODIUM LEVEL 138 MMOL/L (136-145)
== END ==
PROVIDERS: ATTEND Physician Assistant
DX: E11.9 Type 2 diabetes mellitus without complications (principal)

== ENCOUNTER → 2024-05-16 | Outpatient (REF) ==
[2024-05-16 09:11] LABS: HEMOGLOBIN 16.5 g/dl (13.5-17.5); MEAN CORPUSCULAR HEMOGLOBIN 27.8 pg (27.0-33.0); MEAN CORPUSCULAR HGB CONC 31.7 g/dl (32.0-36.5); MEAN CORPUSCULAR VOLUME 87.5 fl (80.0-96.0); PLATELET COUNT, AUTOMATED 254 10^3/uL (150-450); RED BLOOD COUNT 5.94 10^6/uL (4.30-6.10); WHITE BLOOD COUNT 7.1 10^3/uL (4.0-10.0)
[2024-05-16 09:37] LABS: BLOOD UREA NITROGEN 21 MG/DL (9-23); CARBON DIOXIDE LEVEL 26 MMOL/L (20-31); CHLORIDE LEVEL 102 MMOL/L (98-107); CREATININE FOR GFR 0.82 MG/DL (0.70-1.30); GLOMERULAR FILTRATION RATE > 60.0 (>35); GLUCOSE, FASTING 169 MG/DL (74-106); POTASSIUM SERUM 4.2 MMOL/L (3.5-5.1); SODIUM LEVEL 140 MMOL/L (136-145)
== END ==
PROVIDERS: ATTEND Physician Assistant
DX: E11.9 Type 2 diabetes mellitus without complications (principal)

== ENCOUNTER → 2024-06-15 | Outpatient (REF) ==
[2024-06-15 14:08] LABS: HEMATOCRIT 46.3 % (42.0-52.0); HEMOGLOBIN 14.6 g/dl (13.5-17.5); MEAN CORPUSCULAR HGB CONC 31.5 g/dl (32.0-36.5); MEAN CORPUSCULAR VOLUME 88.9 fl (80.0-96.0); PLATELET COUNT, AUTOMATED 248 10^3/uL (150-450); RED BLOOD COUNT 5.21 10^6/uL (4.30-6.10); WHITE BLOOD COUNT 7.8 10^3/uL (4.0-10.0)
[2024-06-15 15:25] LABS: ALBUMIN 3.2 G/DL (3.2-5.2); ALKALINE PHOSPHATASE 55 U/L (40-129); ALT/SGPT 29 U/L (7.0-40); AST/SGOT 24 U/L (<34); BILIRUBIN,DIRECT < 0.1 MG/DL (<0.4); BILIRUBIN,TOTAL 0.2 MG/DL (0.3-1.2); BLOOD UREA NITROGEN 17 MG/DL (9-23); CALCIUM LEVEL 8.8 MG/DL (8.3-10.6); CARBON DIOXIDE LEVEL 24 MMOL/L (20-31); CHLORIDE LEVEL 102 MMOL/L (98-107); GLOMERULAR FILTRATION RATE > 60.0 (>35); GLUCOSE, FASTING 250 MG/DL (74-106); POTASSIUM SERUM 4.6 MMOL/L (3.5-5.1); SODIUM LEVEL 137 MMOL/L (136-145); THYROID STIMULATING HORMONE 2.322 uIU/ML (0.55-4.78); THYROXINE (T4) 6.7 UG/DL (4.5-10.9); TOTAL PROTEIN 6.6 G/DL (5.7-8.2); TOTAL T3 91.1 NG/DL (60.0-181.0)
[2024-06-15 19:18] LABS: HEMOGLOBIN A1c 9.2 % (4.0-6.0)
== END ==
PROVIDERS: ATTEND Physician Assistant
DX: R63.4 Abnormal weight loss (principal)

== ENCOUNTER → 2024-06-18 | Outpatient (REF) | payer MEDICARE | PROVIDERS: ATTEND Internal Medicine | DX: R05.9 Cough, unspecified (principal); R63.4 Abnormal weight loss ==

== ENCOUNTER → 2024-06-20 | Outpatient (REF) ==
[2024-06-20 07:48] LABS: HEMATOCRIT 47.2 % (42.0-52.0); HEMOGLOBIN 14.6 g/dl (13.5-17.5); MEAN CORPUSCULAR HEMOGLOBIN 27.5 pg (27.0-33.0); MEAN CORPUSCULAR HGB CONC 30.9 g/dl (32.0-36.5); MEAN CORPUSCULAR VOLUME 89.1 fl (80.0-96.0); PLATELET COUNT, AUTOMATED 235 10^3/uL (150-450); WHITE BLOOD COUNT 6.1 10^3/uL (4.0-10.0)
[2024-06-20 08:17] LABS: BLOOD UREA NITROGEN 16 MG/DL (9-23); CALCIUM LEVEL 8.7 MG/DL (8.3-10.6); CARBON DIOXIDE LEVEL 29 MMOL/L (20-31); CHLORIDE LEVEL 104 MMOL/L (98-107); GLOMERULAR FILTRATION RATE > 60.0 (>35); GLUCOSE, FASTING 173 MG/DL (74-106); POTASSIUM SERUM 4.3 MMOL/L (3.5-5.1); SODIUM LEVEL 141 MMOL/L (136-145)
== END ==
PROVIDERS: ATTEND Internal Medicine
DX: E78.5 Hyperlipidemia, unspecified (principal)

== ENCOUNTER → 2024-07-18 | Outpatient (REF) | payer MEDICARE ==
[2024-07-18 07:25] LABS: HEMATOCRIT 46.2 % (42.0-52.0); HEMOGLOBIN 14.6 g/dl (13.5-17.5); MEAN CORPUSCULAR HGB CONC 31.6 g/dl (32.0-36.5); MEAN CORPUSCULAR VOLUME 88.7 fl (80.0-96.0); PLATELET COUNT, AUTOMATED 222 10^3/uL (150-450); RED BLOOD COUNT 5.21 10^6/uL (4.30-6.10); WHITE BLOOD COUNT 6.3 10^3/uL (4.0-10.0)
[2024-07-18 07:48] LABS: BLOOD UREA NITROGEN 17 MG/DL (9-23); CALCIUM LEVEL 8.8 MG/DL (8.3-10.6); CARBON DIOXIDE LEVEL 26 MMOL/L (20-31); CHLORIDE LEVEL 103 MMOL/L (98-107); CREATININE FOR GFR 0.74 MG/DL (0.70-1.30); GLOMERULAR FILTRATION RATE > 90.0 (>35); GLUCOSE, FASTING 162 MG/DL (74-106); POTASSIUM SERUM 4.4 MMOL/L (3.5-5.1); SODIUM LEVEL 140 MMOL/L (136-145)
[2024-07-18 08:08] LABS: HEMOGLOBIN A1c 8.7 % (4.0-6.0)
== END ==
PROVIDERS: ATTEND Internal Medicine
DX: E78.5 Hyperlipidemia, unspecified (principal); E11.9 Type 2 diabetes mellitus without complications

== ENCOUNTER → 2024-09-19 | Outpatient (REF) | payer MEDICARE ==
[2024-09-19 09:14] LABS: PLATELET COUNT, AUTOMATED 247 10^3/uL (150-450)
[2024-09-19 09:37] LABS: CALCIUM LEVEL 9.1 MG/DL (8.3-10.6); CARBON DIOXIDE LEVEL 27 MMOL/L (20-31); CHLORIDE LEVEL 105 MMOL/L (98-107); CREATININE FOR GFR 0.75 MG/DL (0.70-1.30); GLOMERULAR FILTRATION RATE > 90.0 (>35); POTASSIUM SERUM 4.6 MMOL/L (3.5-5.1); SODIUM LEVEL 144 MMOL/L (136-145)
== END ==
PROVIDERS: ATTEND Internal Medicine
DX: E78.5 Hyperlipidemia, unspecified (principal)

== ENCOUNTER → 2024-10-15 | Outpatient (REF) | payer MEDICARE, OTHER ==
[2024-10-15 10:26] LABS: PLATELET COUNT, AUTOMATED 277 10^3/uL (150-450)
[2024-10-15 11:01] LABS: CALCIUM LEVEL 8.9 MG/DL (8.3-10.6); CARBON DIOXIDE LEVEL 27.0 MMOL/L (20-31); CHLORIDE LEVEL 101.0 MMOL/L (98-107); CREATININE FOR GFR 0.91 MG/DL (0.70-1.30); GLOMERULAR FILTRATION RATE 84.2 (>35); POTASSIUM SERUM 4.6 MMOL/L (3.5-5.1); SODIUM LEVEL 141.0 MMOL/L (136-145)
== END ==
PROVIDERS: ATTEND Internal Medicine
DX: E78.5 Hyperlipidemia, unspecified (principal)

== ENCOUNTER → 2024-10-26 | Outpatient (CLI) | payer MEDICARE, OTHER ==
[~2024-10-26] MED LIST changes: +ISOVUE-370 76% 100 ML VIAL As Ordered ONE
== END ==
LOC: M RAD 07:44
PROVIDERS: ATTEND Internal Medicine Hematology & Oncology
DX: C43.9 Malignant melanoma of skin, unspecified (principal); K40.90 Unilateral inguinal hernia, without obstruction or gangrene, not specified as recurrent; K80.20 Calculus of gallbladder without cholecystitis without obstruction; R91.1 Solitary pulmonary nodule; G31.9 Degenerative disease of nervous system, unspecified
CPT/HCPCS: 70470; 70491; 71260; 74177; Q9967

== ENCOUNTER → 2024-11-19 | Outpatient (REF) | payer MEDICARE, OTHER ==
[~2024-11-19] MED LIST changes: -ISOVUE-370 76% 100 ML VIAL As Ordered ONE
[2024-11-19 11:41] LABS: BASO # 0.1 10^3/uL (0.0-0.2); BASO % 0.8 % (0.0-1.0); EOS # 0.1 10^3/uL (0.0-0.5); EOS % 1.1 % (0.0-3.0); LYMPH # 1.8 10^3/uL (1.5-5.0); LYMPH % 21.8 % (24.0-44.0); MONO # 0.5 10^3/uL (0.0-0.8); MONO % 6.3 % (2.0-8.0); NEUTROPHILS # 5.6 10^3/uL (1.5-8.5); NEUTROPHILS % 67.8 % (36.0-66.0); PLATELET COUNT, AUTOMATED 350 10^3/uL (150-450)
[2024-11-19 12:17] LABS: ALT/SGPT 25.0 U/L (7.0-40); AST/SGOT 18.0 U/L (<34); CALCIUM LEVEL 8.8 MG/DL (8.3-10.6); CARBON DIOXIDE LEVEL 26.0 MMOL/L (20-31); CHLORIDE LEVEL 101.0 MMOL/L (98-107); CREATININE FOR GFR 0.8 MG/DL (0.70-1.30); GLOMERULAR FILTRATION RATE 88.4 (>35); POTASSIUM SERUM 4.5 MMOL/L (3.5-5.1); SODIUM LEVEL 140.0 MMOL/L (136-145)
== END ==
PROVIDERS: ATTEND Internal Medicine
DX: E78.5 Hyperlipidemia, unspecified (principal)

== ENCOUNTER → 2024-12-19 | Outpatient (REF) | payer MEDICARE, OTHER ==
[~2024-12-19] MED LIST changes: +NITR0.4S14 SL; +ONDA-83 PO; +TRUL0.5I SC; +TUMS500C PO
[2024-12-19 11:51] LABS: PLATELET COUNT, AUTOMATED 286 10^3/uL (150-450)
[2024-12-19 12:23] LABS: CALCIUM LEVEL 8.6 MG/DL (8.3-10.6); CARBON DIOXIDE LEVEL 28 MMOL/L (20-31); CHLORIDE LEVEL 100 MMOL/L (98-107); CREATININE FOR GFR 0.75 MG/DL (0.70-1.30); GLOMERULAR FILTRATION RATE > 90.0 (>35); POTASSIUM SERUM 4.2 MMOL/L (3.5-5.1); SODIUM LEVEL 138 MMOL/L (136-145)
[2024-12-19 12:32] LABS: ESTIMATED AVERAGE GLUCOSE 206.0 MG/DL (60-110)
== END ==
PROVIDERS: ATTEND Internal Medicine
DX: E78.5 Hyperlipidemia, unspecified (principal); Z79.899 Other long term (current) drug therapy

== ENCOUNTER → 2025-01-03 | Outpatient (REF) | payer MEDICARE, OTHER | PROVIDERS: ATTEND Physician Assistant | DX: C43.62 Malignant melanoma of left upper limb, including shoulder (principal); E11.9 Type 2 diabetes mellitus without complications ==

== ENCOUNTER → 2025-01-04 | Outpatient (REF) | payer MEDICARE, OTHER ==
[2025-01-04 10:48] LABS: PLATELET COUNT, AUTOMATED 267 10^3/uL (150-450)
[2025-01-04 11:28] LABS: ALT/SGPT 15 U/L (7.0-40); AST/SGOT 18 U/L (<34); CALCIUM LEVEL 9.0 MG/DL (8.3-10.6); CARBON DIOXIDE LEVEL 22 MMOL/L (20-31); CHLORIDE LEVEL 101 MMOL/L (98-107); CREATININE FOR GFR 0.66 MG/DL (0.70-1.30); GLOMERULAR FILTRATION RATE > 90.0 (>35); MAGNESIUM LEVEL 2.0 MG/DL (1.8-2.4); POTASSIUM SERUM 4.3 MMOL/L (3.5-5.1); SODIUM LEVEL 140 MMOL/L (136-145)
== END ==
PROVIDERS: ATTEND Physician Assistant
DX: C43.62 Malignant melanoma of left upper limb, including shoulder (principal)

== ENCOUNTER → 2025-01-14 | Outpatient (REF) | payer MEDICARE, OTHER ==
[~2025-01-14] MED LIST changes: +NOVOFINE SUBQ
[2025-01-14 12:39] LABS: PLATELET COUNT, AUTOMATED 293 10^3/uL (150-450)
[2025-01-14 13:05] LABS: ESTIMATED AVERAGE GLUCOSE 212.0 MG/DL (60-110)
[2025-01-14 13:05] LABS: CALCIUM LEVEL 8.8 MG/DL (8.3-10.6); CARBON DIOXIDE LEVEL 26.0 MMOL/L (20-31); CHLORIDE LEVEL 100.0 MMOL/L (98-107); CREATININE FOR GFR 0.8 MG/DL (0.70-1.30); GLOMERULAR FILTRATION RATE 88.4 (>35); POTASSIUM SERUM 4.3 MMOL/L (3.5-5.1); SODIUM LEVEL 139.0 MMOL/L (136-145)
== END ==
PROVIDERS: ATTEND Internal Medicine
DX: E78.5 Hyperlipidemia, unspecified (principal); Z79.899 Other long term (current) drug therapy

== ENCOUNTER → 2025-02-01 | Outpatient (CLI) | payer OTHER, MEDICARE ==
[~2025-02-01] MED LIST changes: +ISOVUE-370 76% 100 ML VIAL As Ordered ONE
== END ==
LOC: M RAD 11:09
PROVIDERS: ATTEND Student in an Organized Health Care Education/Training Program
DX: C43.9 Malignant melanoma of skin, unspecified (principal)
CPT/HCPCS: 70470; Q9967

== ENCOUNTER → 2025-02-11 | Outpatient (REF) | payer MEDICARE, OTHER ==
[~2025-02-11] MED LIST changes: -ISOVUE-370 76% 100 ML VIAL As Ordered ONE
== END ==
PROVIDERS: ATTEND Internal Medicine
DX: E78.49 Other hyperlipidemia (principal); Z53.8 Procedure and treatment not carried out for other reasons

== ENCOUNTER → 2025-02-11 | Outpatient (CLI) | payer OTHER, MEDICARE | LOC: M PLARAD 11:10 | PROVIDERS: ATTEND Student in an Organized Health Care Education/Training Program | DX: C43.8 Malignant melanoma of overlapping sites of skin (principal); Z53.9 Procedure and treatment not carried out, unspecified reason ==

== ENCOUNTER → 2025-02-11 | Outpatient (REF) | payer MEDICARE, OTHER | PROVIDERS: ATTEND Internal Medicine | DX: E78.5 Hyperlipidemia, unspecified (principal); Z53.8 Procedure and treatment not carried out for other reasons ==

== ENCOUNTER → 2025-02-15 | Outpatient (CLI) | payer MEDICARE, OTHER ==
[~2025-02-15] MED LIST changes: +ISOVUE-370 76% 100 ML VIAL As Ordered ONE
== END ==
LOC: M RAD 16:57
PROVIDERS: ATTEND Student in an Organized Health Care Education/Training Program
DX: D03.8 Melanoma in situ of other sites (principal)
CPT/HCPCS: 70470; 71260; 74177; Q9967